=== PATIENT | female | born 1945 | race Caucasian/White ===

== ENCOUNTER 2017-02-01 10:00 | Inpatient (IN) | payer MEDICARE, OTHER ==
[2017-02-11 12:29] VITALS: BMI 38.5
[2017-02-17] MEDS ORDERED: CEFAZOLIN/Water 2 GM/20 ML SYRINGE ONE (06:48)
[2017-02-17] MEDS ORDERED: Heparin 5,000 UNITS/ML VIAL ONE (06:49)
[2017-02-17] MEDS ORDERED: Fentanyl 250 MCG/5 ML VIAL ONE (06:57)
[2017-02-17] MEDS ORDERED: Bupivacaine 0.25% HCL 30 ML VIAL ONE (07:03)
[2017-02-17] MEDS ORDERED: Bupivacaine PF 0.5% 30 ML VIAL ONE (07:03)
--- NOTE | 2017-02-17 07:21 | HP ---
CHIEF COMPLAINT: Morbid obesity. HISTORY OF PRESENT ILLNESS: The patient is a 71-year-old female, who has been overweight for many y ears and attempted multiple weight loss programs without success. She is here for sleeve gastrectom y. PAST MEDICAL HISTORY: Significant for diabetes, hypertension, sleep apnea, dyslipidemia, history of hepatitis A and venous varicosities. PAST SURGICAL HISTORY: Include tonsillectomy, hysterectomy, cholecystectomy blepharoplasty, catarac t surgery, coronary artery bypass graft, bunionectomy, and bilateral knee replacement. She has had an MRSA abscess x2 removed. She has had EGD, colonoscopy, and polyp removal, and a cardiac catheter ization. MEDICATIONS: Include Toprol-XL, amlodipine, Synthroid, Cymbalta, isosorbide, Zestoretic, Plavix, an d multivitamins. ALLERGIES: She has allergies to DEMEROL, MORPHINE and ADHESIVES. FAMILY HISTORY: Father of hypertension and heart disease. Mother of hypertension and hea rt disease. SOCIAL HISTORY: She is a nonsmoker, no tobacco and no alcohol. PHYSICAL EXAMINATION: VITAL SIGNS: Height 5 feet 3 inches, weight 245, body mass index 43.4. Blood pressure 156/74, puls e 74. GENERAL: She is a morbidly obese female, awake, alert, in no apparent distress. HEENT: Good hair growth. No alopecia. Pupils equal, round, and reactive. Extraocular motor intac t. Pharynx clear. Good dentition. NECK: Supple, no thyroid masses, no carotid bruits. LUNGS: Clear. HEART: Regular rate and rhythm. ABDOMEN: Obese, soft, nontender, no palpable masses. EXTREMITIES: She has venous varicosities. No pedal edema. Good pulses. ASSESSMENT: Morbid obesity with comorbidities. PLAN: Laparoscopic sleeve gastrectomy. CONSENT: I have discussed the planned procedure as well as risk of bleeding, infection, injury to e sophagus, spleen, loops of bowel, need to open, and leakage from staple line. She understands and dwight shabana informed consent.
[2017-02-17] MEDS ORDERED: Lidocaine 1% PF 5 ML VIAL ONE (07:37)
[2017-02-17] MEDS ORDERED: Dexamethasone 20 MG/5 ML VIAL ONE (07:37)
[2017-02-17] MEDS ORDERED: Glycopyrrolate 0.2 MG/ML 5 ML SYRINGE ONE (07:37)
[2017-02-17] MEDS ORDERED: Ondansetron HCl/PF 4 MG/2 ML Vial ONE (07:37)
[2017-02-17] MEDS ORDERED: ePHEDrine/0.9% NaCl/PF SYRINGE 50 mg/10 ml ONE (07:37)
[2017-02-17] MEDS ORDERED: PHENYLEPHRINE-NS 100 MCG/ML 10 ML SYRINGE ONE (07:37)
[2017-02-17] MEDS ORDERED: Ondansetron HCl/PF 4 MG/2 ML Vial IVP PRN ×3 (08:41→11:27)
[2017-02-17] MEDS ORDERED: Promethazine HCl 25 MG/ML VIAL IM PRN ×3 (08:41→11:27)
[2017-02-17] MEDS ORDERED: Promethazine HCl 25 MG/ML VIAL SLOW IVP PRN (08:41)
[2017-02-17] MEDS ORDERED: Insulin Regular 300 UNITS/3 ML VIAL SC PRN (08:48)
[2017-02-17] MEDS ORDERED: diphenhydrAMINE 50 MG/ML VIAL IVP PRN ×2 (08:48→11:27)
[2017-02-17] MEDS ORDERED: Dextrose 50% Abboject 50 ML SYRINGE SLOW IVP PRN (08:48)
[2017-02-17] MEDS ORDERED: Dextrose 5% in Water 1,000 ML IV PRN (08:48)
[2017-02-17] MEDS ORDERED: Hydrocodone-Acetamin 15 ML UDCUP PO PRN (08:48)
[2017-02-17] MEDS ORDERED: hydrALAZINE 20 MG/ML VIAL SLOW IVP PRN (08:48)
[2017-02-17] MEDS ORDERED: D5 1/2 NS w/20 mEq KCL 1,000 ML ONE (09:49)
--- NOTE | 2017-02-17 10:07 | OP ---
PREOPERATIVE DIAGNOSIS: Morbid obesity. SURGEON: Jesus Montemayor M.D. PROCEDURES: Laparoscopic sleeve gastrectomy, esophagogastroscopy. INDICATIONS: The patient is a 71-year-old female, morbidly obese, who has attempted multiple weight loss programs without success. FINDINGS: A 38 Frisian bougie used. PROCEDURE IN DETAIL: After informed consent was obtained, the patient was taken to the operating ro om and given general endotracheal anesthesia, placed in the supine position. The abdomen was preppe d and draped in the usual fashion. Local anesthesia infiltrated subcutaneously and deep. A 12 mm i ncision was performed approximately 8 inches below the xiphoid slightly to the left. Veress needle inserted. Drop test performed. Pneumoperitoneum was created to a volume of 2 liters of carbon diox justin. Utilizing a bladeless 12 mm trocar and 0 degree, laparoscope direct visual entry in the abdomi nal cavity was performed. Pneumoperitoneum was created to a pressure of [address] d in steep reverse Trendelenburg position. Nathansen liver retractor inserted. Left lobe of liver retracted superiorly. The pylorus was identified and a 12 mm port placed on the right beneath it an d two 12s placed left subcostal. The omentum was taken off the greater curvature 5 cm from the pylo margarita utilizing the LigaSure. The short gastrics divided with the LigaSure and left crura defined wit h the LigaSure. A 38-Frisian bougie inserted directed into the antrum. The linear 60 mm green load stapler used to divide the antrum to the bougie, gold load along the bougie, and a series of blues t hrough the angle of His. Intraoperative endoscopy was performed. The video endoscope inserted unde r direct vision and advanced into the sleeve. Staple line inspected. There was no bleeding. Stapl e line then tested by inflating the new stomach with pressurized air under water. There was no air leak. Stomach decompressed. Scope removed. The remnant stomach removed from the abdomen through t he left lateral port site. The fascia closed with interrupted 0 Vicryl suture utilizing the GraNee needle. Hemostasis was assured. Trocars and retractors removed. The skin closed with interrupted 4-0 Rapide. Dermabond applied. The patient tolerated the procedure well and transferred to [facility] in good condition. Sponge and needle count verified correct x2.
[2017-02-17] MEDS ORDERED: Fentanyl 100 MCG/2 ML VIAL ONE (10:26)
[2017-02-17] MEDS ORDERED: diphenhydrAMINE 50 MG/ML VIAL IM PRN (11:27)
[2017-02-17] MEDS ORDERED: diphenhydrAMINE 25 MG CAP PO PRN (11:27)
[2017-02-17] MEDS ORDERED: Zolpidem Tartrate 5 MG TAB PO PRN (11:27)
[2017-02-17] MEDS ORDERED: Naloxone HCl 0.4 mg/ml Vial IV PRN ×2 (11:27→11:58)
[2017-02-17] MEDS ORDERED: Communication Order-Pharmacy FS SCH ×2 (11:30→12:00)
[2017-02-17] MEDS ORDERED: Fentanyl 5000 MCG/250 ML CADD IVPB PRN (11:58)
[2017-02-17] MEDS: Pantoprazole 40 MG VIAL IVP SCH (17:01)
[2017-02-17] MEDS: 1/2 NS w/KCL 20 mEq 1,000 ML IV SCH ×2 (17:01→17:11)
[2017-02-17] MEDS: Enoxaparin Sodium 40 MG/0.4 ML SYRINGE SC SCH (17:01)
[2017-02-17] MEDS: CEFAZOLIN/Water 2 GM/20 ML SYRINGE SLOW IVP SCH ×2 (17:05→22:24)
[2017-02-17] MEDS ORDERED: Chloraseptic Spray 180 ml Bottle PO PRN (22:03)
[2017-02-18] MEDS: 1/2 NS w/KCL 20 mEq 1,000 ML IV SCH ×2 (02:47→08:25)
[2017-02-18 06:39] LABS: #Basophils 0.1 thou/uL (0.0-0.2); #Eosinphils 0.1 thou/uL (0.0-0.7); #Lymphocytes 2.1 thou/uL (1.20-3.40); #Monocytes 1.1 thou/uL (0.11-0.59); #Neutrophils 11.5 thou/uL (1.40-6.50); %Basophils 0.4 % (0.0-1.0); %Eosinophils 0.6 % (0.0-10.0); %Lymphocytes 14.3 % (21.0-51.0); %Monocytes 7.6 % (0.0-10.0); Hematocrit 37.5 % (36.0-47.0); Mean Platelet Volume 8.6 fL (7.4-10.4); Red Blood Cell (RBC) Count 4.12 mill/uL (4.20-5.40); White Blood Cell (WBC) Count 14.9 thou/uL (4.8-10.8)
[2017-02-18 06:55] LABS: Anion Gap 12 mmol/L (10-20); BUN (Urea Nitrogen) 21 mg/dL (9.8-20.1); Calc. Creatinine Clearance 86 mL/min (70-130); Calcium 10.4 mg/dL (7.8-10.44); Carbon Dioxide 25 mmol/L (23-31); Chloride 109 mmol/L (98-107); Estimated GFR-MDRD 54
--- NOTE | 2017-02-18 08:32 | RAD ---
LIMITED UPPER GI WITH 15 ML GASTROGRAFIN: Date: 02/18/17 HISTORY: Post bariatric surgery, status post vertical sleeve gastrectomy. FINDINGS: There is prompt passage of contrast from the esophagus into the stomach. No contrast extravasation i s seen. IMPRESSION: No obstruction or leak. POS: BRANDAN
[2017-02-18] MEDS: Enoxaparin Sodium 40 MG/0.4 ML SYRINGE SC SCH (10:30)
[2017-02-18] MEDS: Pantoprazole 40 MG VIAL IVP SCH (10:31)
[2017-02-18 11:33] VITALS: TEMP 98.3
[2017-02-18 11:34] VITALS: BP 160/72
--- NOTE | 2017-02-18 12:01 | DIS ---
DISCHARGE DIAGNOSIS: Morbid obesity. SURGEON: Dr. Jesus Montemayor. PROCEDURE PERFORMED: Laparoscopic sleeve gastrectomy, intraoperative esophagogastroscopy, postopera tive Gastrografin swallow. HOSPITAL COURSE: The patient was admitted, taken to the operating room where she underwent sleeve g astrectomy. Postoperatively, she has done well, tolerating liquids well. Pain is controlled on ora l medications, her x-rays are fine. She is discharged home in good condition on hydrocodone and Zof ran. She will follow up with me in 2 weeks.
--- OUTSIDE RECORDS SUMMARY | 2017-02-18 13:37 | XMS | Clinical Summary ---
:1945 Author Organization [facility] Address [address] [place] [address] Phone Care Team Providers Name Role Phone , Primary Care Provider Unavailable Allergies Not on File Current Medications Not on file Active Problems Not on file Social History Tobacco Use Types Packs/Day Years Used Date Never Assessed Sex Assigned at Date Recorded Not on file Last Filed Vital Signs Not on file Plan of Treatment Not on file Results Not on filefrom Last 3 Months
== END 2017-02-18 13:06 | disposition home or self-care (01) | DRG 621 ==
LOC: SURG A 02-17 06:13 → SURG B 02-17 10:51
PROVIDERS: ADMIT Surgery; ATTEND Surgery
PROC: 0DB64Z3 Excision of Stomach, Percutaneous Endoscopic Approach, Vertical (ICD-10-PCS; principal; 2017-02-17)
PROC: 0DJ08ZZ Inspection of Upper Intestinal Tract, Via Natural or Artificial Opening Endoscopic (ICD-10-PCS; 2017-02-17)
DX: E66.01 Morbid (severe) obesity due to excess calories (principal); E11.9 Type 2 diabetes mellitus without complications; I10 Essential (primary) hypertension; Z68.41 Body mass index [BMI] 40.0-44.9, adult; G47.30 Sleep apnea, unspecified; E78.5 Hyperlipidemia, unspecified; Z86.19 Personal history of other infectious and parasitic diseases; Z95.1 Presence of aortocoronary bypass graft; Z96.653 Presence of artificial knee joint, bilateral; Z86.14 Personal history of Methicillin resistant Staphylococcus aureus infection; Z79.01 Long term (current) use of anticoagulants; Z88.5 Allergy status to narcotic agent; Z91.048 Other nonmedicinal substance allergy status
CPT/HCPCS: 36415; 36416; 74241; 80048; 85025; 88307; 88312; 94760; C9113; J0131; J1100; J1644; J1650; J2001; J2405; J2550; J3010; S0020

== ENCOUNTER 2017-02-11 12:14 | Outpatient (CLI) | payer MEDICARE, OTHER ==
[2017-02-11 13:54] LABS: Hematocrit 38.2 % (36.0-47.0); Mean Platelet Volume 8.5 fL (7.4-10.4); Red Blood Cell (RBC) Count 4.23 mill/uL (4.20-5.40); White Blood Cell (WBC) Count 10.1 thou/uL (4.8-10.8)
[2017-02-11 14:05] LABS: Hemoglobin A1c 5.7 % (4.0-6.0)
--- NOTE | 2017-02-11 14:23 | RAD ---
PA AND LATERAL CHEST: HISTORY: Preop. FINDINGS: Heart size is within normal limits. There is postop sternotomy change. There are atherosclerotic c hanges of the aorta. The lungs are clear of infiltrates. T here are arthritic changes of the spine and scoliosis changes. IMPRESSION: No active intrathoracic disease. POS: BRANDAN
[2017-02-11 14:30] LABS: ALT (SGPT) 15 U/L (8-55); AST (SGOT) 14 U/L (5-34); Alkaline Phosphatase 53 U/L (40-150); Anion Gap 12 mmol/L (10-20); BUN (Urea Nitrogen) 27 mg/dL (9.8-20.1); Bilirubin, Direct 0.1 mg/dL (0.1-0.3); Bilirubin, Total 0.4 mg/dL (0.2-1.2); Calc. Creatinine Clearance 0 mL/min (70-130); Calcium 10.7 mg/dL (7.8-10.44); Carbon Dioxide 26 mmol/L (23-31); Chloride 108 mmol/L (98-107); Estimated GFR-MDRD 52; Globulin 2.7 g/dL (2.4-3.5); Protein, Total 6.7 g/dL (6.0-8.3)
== END 2017-02-11 12:15 | disposition home or self-care (01) ==
LOC: LABBT 12:14
PROVIDERS: ATTEND Surgery
DX: Z01.818 Encounter for other preprocedural examination (principal); G47.30 Sleep apnea, unspecified; E11.9 Type 2 diabetes mellitus without complications; I10 Essential (primary) hypertension; E78.5 Hyperlipidemia, unspecified; Z68.41 Body mass index [BMI] 40.0-44.9, adult
CPT/HCPCS: 71020; 80053; 80076; 83036; 85027; 93005; 93010